=== PATIENT | female | born 1980 | race African-American/Black ===

== ENCOUNTER 2016-06-16 04:00 | Emergency (ER) | payer MEDICAID ==
[2016-06-16 04:04] VITALS: BMI 53.8
[2016-06-16 04:17] VITALS: TEMP 98.6
[2016-06-16] MEDS ORDERED: LORAZEPAM 1 MG TAB PO ONE (04:33)
--- NOTE | 2016-06-16 04:35 | EDPRACDOC ---
- General Information Chief Complaint: Chest Pain Stated Complaint: CHEST PAIN Time Seen by Provider: 06/16/16 04:04 Information Source: Patient Mode of Arrival: Ambulance Home Medications: Home Medications Venlafaxine HCl ER [Effexor Xr] 150 mg PO BID 10/03/15 Aripiprazole [Abilify] 15 mg PO DAILY 10/31/15 Lisdexamfetamine Dimesylate [Vyvanse] 50 mg PO QAM 10/31/15 Amlodipine [Norvasc] 5 mg PO DAILY 11/27/15 MetFORMIN (Immediate Release) [GLUCOPHAGE Immed Release] 500 mg PO BID 11/27/15 Budesonide/Formoterol Fumarate [Symbicort 160-4.5 Mcg Inhaler] 2 puff INH BID Alprazolam [Xanax] 0.5 mg PO TID #14 tablet 02/08/16 Alprazolam [Xanax] 2 mg PO TID PRN 02/08/16 Butalb/Acetamin/Caffeine [Fioricet] 1 each PO Q4-6H #14 tab 02/08/16 Allergies/Adverse Reactions: Allergies Allergy/AdvReac Type Severity Reaction Status Date / Time No Known Allergies Allergy Verified 06/16/16 04:20 - History of Present Illness Onset: 1 day Chest Pain Location: Reports: Left Chest Pain Radiation: Reports: Back Symptoms Occur: Reports: Gradually Cardiac Risk Factors: Reports: Hypertension Cardiac History of: Reports: DVT/PE, Cardiac Cath Medications within 24 Hours: Reports: Other (quit taking blood thinners a month ago, too expensive, has not followed up) Pain Came On: Reports: Gradually Pain Status: Present Now Pain Description: Reports: Sharp Pain Severity: Moderate Pain Worsens With: Reports: Nothing Pain Improves With: Reports: Nothing Associated Signs and Symptoms: Denies: SOB, Palpitations, Diaphoretic, Abdominal Pain, Vomiting, Calf Pain or Swelling ED Past Medical History - History Reviewed Yes Nurses notes reviewed and agree except as marked - Patient Medical History Neurological History: Reports: Migraine Cardiac History: Reports: Hypertension, Cardiac Catheterization, Hypercholesterolemia, Syncope (frequently passing out) Respiratory History: Reports: COPD, Pulmonary Embolism (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 LYNN but not had sleep study.) GI/ History: Denies: Urinary Tract Infection Musculoskeletal History: Reports: Arthritis Psychological History: Reports: Depression, Anxiety, Bipolar Disorder. Denies: Substance Use Disorder Systemic History: Reports: Anemia, Diabetes. Denies: Cancer Additional Past Medical History: MORBID OBESITY Surgical History: Reports: Cardiac Catheterization, Other (IVC FILTER). Denies : Hysterectomy - Family Medical History Reports: Hypertension (MOTHER AND SISTER), Diabetes (FATHER AND BROTHER), Stroke (Father), Cardiac Disorders (Sister [place] at 36yo. Father [place] in 50's.). Denies: Cancer - Social Medical History Smoking Status: Never smoker Social History: Denies: Substance Use Disorder EDM Review of Systems - Review of Systems ROS Negative Except as Marked: Yes All systems reviewed and were negative except as marked - Physical Exam Constitutional: Alert (Awake), No apparent distress Oriented to: Time, Person, Place Last recorded Vital Signs: Last Vital Signs Temp 98.6 F 06/16/16 04:12 Pulse 96 06/16/16 04:12 Resp 20 06/16/16 04:12 BP 151/71 06/16/16 04:12 Pulse Ox 99 06/16/16 04:12 Oxygen Pulse Oxygen Saturation 99 O2 Device Oxygen Flow Rate Fraction of Inspired Oxygen ( FIO2) - HEENT Head: Normal ( normocephalic) Eye Exam: Normal (PERRL, EOMI, Sclera white) Oropharynx: Normal (Pharynx:Moist without exudate,Gums-no swelling) Tympanic Membrane: Normal ENT EAC: Normal TMJ: Normal Nose: No Symptoms Reported (septum midline) Neck: Normal (FROM, trachea at midline) - Respiratory/Cardiovascular Respiratory: Normal - CTA (BBS clear to auscultation without adventitious sounds ) Cardiovascular: Normal (RRR without murmur, gallop or rub) - GI Auscultation: Normal (NABS) Palpation: Normal (Soft,No rebound or guarding, non distended) Tenderness: Non tender Galan's Sign: Negative - Musculoskeletal Back: Normal (Non-Tender) Extremities: Normal (Normal tone, Pulses 2+ No cyanosis or edema, FROM). negative: Calf Tenderness - Integumentary Skin: Normal, Warm, Dry Lymphatics: Normal (no adenopathy) - Neurologic Memory Impaired: Normal Motor Function: Normal (Normal tone, Pulses 2+ No cyanosis or edema, FROM) Cranial Nerve: Normal (CN II-X11 intact sensation, strength 5/5) Cerebellar: Normal Mood Description: Normal Perception: Normal - Action ASA given in the ED: No - Re-evaluation Re-evaluation 1 Re-evaluation Time: 07:00 (sign out, pending CT Angio) - Results 06/16/16 05:08 06/16/16 05:08 - EKG EKG #1 EKG Time: 04:10 -: Yes EKG interpreted by me Rate: bpm: 90 Carver: RAD Rhythm: NSR Block: None Hypertrophy: None ST: Nonsp - Diagnostic Imaging Chest Image interpreted by: Radiologist EXAM: PORTABLE CHEST 1 VIEW COMPARISON: Prior radiograph from 01/08/2016. FINDINGS: Examination is somewhat limited by technique and body habitus. Cardiac and mediastinal silhouettes are stable in size and contour, and remain within normal limits. Lungs are mildly hypoinflated. No focal infiltrate, pulmonary edema, or pleural effusion. No pneumothorax. No acute osseous abnormality. IMPRESSION: No active cardiopulmonary disease identified. Electronically Signed By: Haresh Sibley M.D. On: 06/16/2016 04:53 Electronically Signed By: Haresh Sibley MD Electronically Signed Date/Time: [id number] Dictate Date/Time: 06/16/16 0449 Technologist: Dana Cha Transcribed By: Amrita Transcribed Date/Time: 06/16/16 0453 - Departure Final Diagnosis: Chest pain Instructions: Chest Pain (ED), Chest Wall Pain
--- NOTE | 2016-06-16 04:56 | DIRPT ---
CLINICAL DATA: Initial valuation for acute sharp left-sided chest pain. EXAM: PORTABLE CHEST 1 VIEW COMPARISON: Prior radiograph from 01/08/2016. FINDINGS: Examination is somewhat limited by technique and body habitus. Cardiac and mediastinal silhouettes are stable in size and contour, and remain within normal limits. Lungs are mildly hypoinflated. No focal infiltrate, pulmonary edema, or pleural effusion. No pneumothorax. No acute osseous abnormality. IMPRESSION: No active cardiopulmonary disease identified. Electronically Signed By: Haresh Sibley M.D. On: 06/16/2016 04:53
[2016-06-16 05:14] LABS: AUTOMATED BASOPHIL 0.2 % (0-2); AUTOMATED EOSINOPHIL 1.2 % (0-5); AUTOMATED LYMPH 38.9 % (17-44); AUTOMATED MONOCYTE 6.5 % (3-10); AUTOMATED NEUTROPHIL 53.2 % (45-76); MPV 8.2 fL (7.4-10.4)
[2016-06-16 05:25] LABS: BLOOD UREA NITROGEN 5 MG/DL (7-17); CALC CORRECTED 8.6 MG/DL (8.4-10.2); CALCIUM 8.4 MG/DL (8.4-10.2); CALCULATED OSMOLALITY 270 MOs/Kg (270-290); CHLORIDE 100 mEq/L (98-107); GLUCOSE 190 MG/DL (70-99); SODIUM LEVEL 139 mEq/L (137-146); TOTAL PROTEIN 7.3 G/DL (6.3-8.2)
[2016-06-16] MEDS ORDERED: Pharmacy Review for Metformin - IV Contrast Given SCH (06:00)
[2016-06-16] MEDS ORDERED: MORPHINE 4 MG/ML INJECTION IV ONE (06:08)
[2016-06-16] MEDS ORDERED: ONDANSETRON HCL 4 MG/2 ML VIAL IV ONE (06:08)
[2016-06-16] MEDS ORDERED: POTASSIUM CHLORIDE 20 MEQ TAB PO ONE (06:08)
--- NOTE | 2016-06-16 07:26 | DIRPT ---
CLINICAL DATA: Left-sided chest pain radiating to the back. History of pulmonary emboli. EXAM: CT ANGIOGRAPHY CHEST WITH CONTRAST TECHNIQUE: Multidetector CT imaging of the chest was performed using the standard protocol during bolus administration of intravenous contrast. Multiplanar CT image reconstructions and MIPs were obtained to evaluate the vascular anatomy. CONTRAST: 100 cc Isovue 370 COMPARISON: CT angiogram dated 11/10/2015, 10/08/2015 and 10/03/2015 FINDINGS: There are no definitive pulmonary emboli. There is respiratory room artifact at limits sensitivity. RV LV ratio is 0.90. Heart size is normal. No hilar or mediastinal adenopathy. The lungs are clear. No significant osseous abnormality. No effusions. Review of the MIP images confirms the above findings. IMPRESSION: Negative CT angiogram of the chest. Respiratory motion slightly limits sensitivity. Electronically Signed By: Dontae Go M.D. On: 06/16/2016 07:23
[2016-06-16] MEDS ORDERED: RIVAROXABAN 10 MG TAB PO STA (08:16)
[2016-06-16 08:48] VITALS: BP 120/70; PULSE 80
== END 2016-06-16 08:47 | disposition home or self-care (01) ==
LOC: ED 04:00
DX: R07.9 Chest pain, unspecified (principal)
CPT/HCPCS: 36415; 71010; 71275; 80053; 83880; 84484; 85025; 93005; 96374; 96375; 99284; A9698; J2270; J2405; J3490